=== PATIENT | male | born 1990 | race American Indian/Alaskan Native ===

== ENCOUNTER 2018-02-24 14:06 | Emergency (ER) | payer SELFPAY ==
[2018-02-24 14:15] VITALS: BP 129/74
--- NOTE | 2018-02-24 15:48 | Emergency Department Report ---
ED Chest Pain HPI - General Chief Complaint: Chest Pain Stated Complaint: CP Time Seen by Provider: 02/24/18 15:30 Source: patient Mode of arrival: Ambulatory Limitations: No Limitations - History of Present Illness Initial Comments: This is a 27-year-old -[place] male that presents with chest pain with deep breaths and stretching for 3-4 days. Patient reports feeling like something is grabbing his heart when he reached for something. States symptoms increased Thursday morning when he woke up. He has a history of anxiety. Admits to drug and alcohol abuse. States any past he was taken every drug but methamphetamines. Currently sober for 3-4 days since symptoms started. Reports pain is worse with range of motion of bilateral upper extremity. If he touch left chest wall he can feel pain that is 10 out of 10. Reports pain is intermittent. Denies taking anything for symptom relief. Concerned he cleaned the return of pneumonia or shingles. He had both last year diagnosed by [facility]. Denies shortness of breath, nausea vomiting, fever, erythema, asthma, SOB, palpations, or dyspnea, and swelling. MD Complaint: chest pain -: days(s) (4 days) Onset: during exertion Pain Location: left chest Pain Radiation: none Severity: moderate Severity scale (0 -10): 5 Quality: tightness, squeezing Consistency: intermittent Improves With: rest Worsens With: exertion, inspiration, movement re: denies: nausea, vomting, diaphoresis, dyspnea, sense of impending doom Other Symptoms: denies: cough, fever, syncope, rash, acid taste in mouth, leg swelling, palpitations, burping Treatments Prior to Arrival: none - Related Data Previous Rx's Medication Instructions Recorded Last Taken Type Acyclovir [Zovirax Tab] 800 mg PO DAILY #50 tab 03/09/16 Unknown Rx Ibuprofen [Motrin 800 MG tab] 800 mg PO Q8HR PRN #30 tablet 03/09/16 Unknown Rx predniSONE [Deltasone] 50 mg PO QDAY #5 tab 03/09/16 Unknown Rx Cyclobenzaprine HCl [Flexeril 5 MG 5 mg PO TID PRN #15 tab 02/24/18 Unknown Rx TAB] Ibuprofen [Motrin 800 MG tab] 800 mg PO Q8HR PRN #15 tablet 02/24/18 Unknown Rx Allergies Allergy/AdvReac Type Severity Reaction Status Date / Time No Known Allergies Allergy Verified 03/09/16 20:26 Heart Score - HEART Score History: Slightly suspicious EKG: Normal Age: < 45 Risk factors: 1-2 risk factors Troponin: < normal limit HEART Score: 1 ED Review of Systems ROS: Stated complaint: CP Other details as noted in HPI Constitutional: denies: chills, fever Respiratory: denies: cough, shortness of breath, wheezing Cardiovascular: chest pain. denies: palpitations, edema, syncope Gastrointestinal: denies: abdominal pain, nausea, vomiting, diarrhea Neurological: denies: headache, weakness, numbness, paresthesias Psychiatric: denies: anxiety, depression ED Past Medical Hx - Past Medical History Previous Medical History?: Yes Additional medical history: Hx of anxiety. - Surgical History Past Surgical History?: No - Social History Smoking Status: Current Every Day Smoker Substance Use Type: Alcohol, Cocaine, Marijuana, Other - Medications Home Medications: Home Medications Medication Instructions Recorded Confirmed Last Taken Type Acyclovir [Zovirax Tab] 800 mg PO DAILY #50 tab 03/09/16 Unknown Rx Ibuprofen [Motrin 800 MG tab] 800 mg PO Q8HR PRN #30 tablet 03/09/16 Unknown Rx predniSONE [Deltasone] 50 mg PO QDAY #5 tab 03/09/16 Unknown Rx Cyclobenzaprine HCl [Flexeril 5 MG 5 mg PO TID PRN #15 tab 02/24/18 Unknown Rx TAB] Ibuprofen [Motrin 800 MG tab] 800 mg PO Q8HR PRN #15 tablet 02/24/18 Unknown Rx ED Physical Exam - General Limitations: No Limitations General appearance: alert, in no apparent distress - Respiratory Respiratory exam: Present: normal lung sounds bilaterally. Absent: respiratory distress - Cardiovascular Cardiovascular Exam: Present: regular rate, normal rhythm, normal heart sounds, other (tenderness along costocondral joint on left). Absent: systolic murmur, diastolic murmur, rubs, gallop - GI/Abdominal GI/Abdominal exam: Present: soft, normal bowel sounds. Absent: organomegaly, mass - Neurological Exam Neurological exam: Present: alert, oriented X3, normal gait - Psychiatric Psychiatric exam: Present: normal affect, normal mood - Skin Skin exam: Present: warm, dry, intact, normal color. Absent: rash ED Course Vital Signs 02/24/18 14:10 Temperature 98 F Pulse Rate 61 Respiratory 16 Rate Blood Pressure 129/74 O2 Sat by Pulse 98 Oximetry ED Medical Decision Making - Lab Data Result diagrams: 02/24/18 16:11 02/24/18 16:11 - Medical Decision Making 27 y.o. male that presents with chest pain on left side of chest that is non- radiating for 4 days. Denies drug use for 4 days since symptoms started, asthma , SOB, palpations, fever, or dyspnea. Patient examined by me and in no acute distress. Vitals stable. Obtained BMP, CBC, troponin, EKG, and chest xray. All labs, EKG, and CXR unremarkable. Physical assessment findings of tenderness along costocondral joint on left. Start ibuprofen and flexeril. Discharged home stable. Follow up with PCP in 2-3 days. Critical care attestation.: If time is entered above; I have spent that time in minutes in the direct care of this critically ill patient, excluding procedure time. ED Disposition Clinical Impression: Chest pain on exertion, Acute costochondritis Disposition: TO HOME OR SELFCARE Is pt being admited?: No Does the pt Need Aspirin: No Condition: Stable Instructions: Chest Pain (ED), Costochondritis (ED) Additional Instructions: Take ibuprofen and flexeril as needed for pain control. Don't take flexeril while driving or operating heavy machinery, may cause drowsiness. Follow up with primary care provider in 24-72 hours. Return to ER if chest pain unresolved, shortness of breath, or difficulty breathing. Prescriptions: Cyclobenzaprine HCl [Flexeril 5 MG TAB] 5 mg PO TID PRN #15 tab PRN Reason: Muscle Spasm Ibuprofen [Motrin 800 MG tab] 800 mg PO Q8HR PRN #15 tablet PRN Reason: Pain Referrals: [facility] [Outside] - 3-5 Days [facility] [Outside] - 3-5 Days [facility] [Outside] - 3-5 Days Time of Disposition: 18:09 Print Language: COMORAN
--- NOTE | 2018-02-24 16:38 | XRay Report ---
CHEST TWO VIEWS: 02/24/18 CLINICAL: Chest pain. COMPARISON: None FINDINGS: Normal heart and pulmonary vasculature. The lungs are normally expanded and clear.The bones and soft tissues are unremarkable. IMPRESSION: Normal chest.
[2018-02-24 16:45] LABS: Hematocrit 48.6 % (35.5-45.6); Hemoglobin 15.5 gm/dl (11.8-15.2); Mean Corpuscular HGB Conc 32 % (32-34); Mean Corpuscular Hemoglobin 27 pg (28-32); Mean Corpuscular Volume 85 fl (84-94); Platelet Count 151 K/mm3 (140-440); Red Blood Count 5.71 M/mm3 (3.65-5.03)
[2018-02-24 16:50] LABS: BUN/Creatinine Ratio 16; Blood Urea Nitrogen 14 mg/dL (9-20); Calcium 9.8 mg/dL (8.4-10.2); Hemolysis Index 8
== END 2018-02-24 18:19 | disposition home or self-care (01) ==
LOC: ED 14:06
DX: M94.0 Chondrocostal junction syndrome [Tietze] (principal); F17.200 Nicotine dependence, unspecified, uncomplicated; F12.10 Cannabis abuse, uncomplicated; F14.10 Cocaine abuse, uncomplicated; F41.9 Anxiety disorder, unspecified
CPT/HCPCS: 36415; 71046; 80048; 82550; 84484; 85027; 93005; 93010

== ENCOUNTER 2021-12-03 06:27 | Emergency (ER) | payer SELFPAY ==
[2021-12-03] MEDS ORDERED: TETANUS,DIPHTHERIA TOXOID ADULT 0.5 ML INJ IM ONE (11:31)
--- NOTE | 2021-12-03 12:46 | Cat Scan Report ---
CT HEAD WITHOUT CONTRAST INDICATION / CLINICAL INFORMATION: head injury. TECHNIQUE: Axial imaging performed from the skull apex through the skull base without the use of cont rast. Sagittal and coronal reformatted images. All CT scans at this location are performed using CT dose reduction for ALARA by means of automated exposure control. COMPARISON: None available. FINDINGS: CEREBRAL PARENCHYMA: No significant abnormality. No acute territorial infarct. HEMORRHAGE: None. EXTRA-AXIAL SPACES: Normal in size and morphology for the patient's age. VENTRICULAR SYSTEM: Normal in size and morphology for the patient's age. MIDLINE SHIFT OR HERNIATION: None. CEREBELLUM / BRAINSTEM: No significant abnormality. CALVARIUM: No significant abnormality. ORBITS: Normal as visualized. PARANASAL SINUSES / MASTOID AIR CELLS: Normal as visualized. SOFT TISSUES of HEAD: No significant abnormality. ADDITIONAL FINDINGS: None. IMPRESSION: No acute intracranial abnormality. Signer Name: León Giles Jr, MD Signed: 12/03/2021 12:41 PM Workstation Name: [id number]
--- NOTE | 2021-12-03 13:15 | Emergency Department Report ---
ED Head Trauma HPI - General Chief complaint: Head Injury Stated complaint: HEAD INJURY Time Seen by Provider: 12/03/21 11:27 Source: patient Mode of arrival: Ambulatory Limitations: No Limitations - History of Present Illness Initial comments: head injury. States something fell off a shelf and hit him on the right side of his forehead, bleeding;, no bleeding in the triage. Denies LOC, Pupils equal, pt alert and oriented. MD Complaint: head injury -: Sudden, hour(s) Mechanism of Injury: machine or tool related Location: frontal Loss of Consciousness: no Previous Trauma to this Area: No Place: work Radiation: none Severity: mild Severity scale (0 -10): 2 Quality: dull Consistency: constant Provoking factors: none known - Related Data Previous Rx's Medication Instructions Recorded Last Taken Type Acyclovir [Zovirax Tab] 800 mg PO DAILY #50 tab 03/09/16 Unknown Rx Ibuprofen [Motrin 800 MG tab] 800 mg PO Q8HR PRN #30 tablet 03/09/16 Unknown Rx predniSONE [Deltasone] 50 mg PO QDAY #5 tab 03/09/16 Unknown Rx Cyclobenzaprine HCl [Flexeril 5 MG 5 mg PO TID PRN #15 tab 02/24/18 Unknown Rx TAB] Ibuprofen [Motrin 800 MG tab] 800 mg PO Q8HR PRN #15 tablet 02/24/18 Unknown Rx Allergies/Adverse reactions: Allergies Allergy/AdvReac Type Severity Reaction Status Date / Time No Known Allergies Allergy Verified 03/09/16 20:26 ED Review of Systems ROS: Stated complaint: HEAD INJURY Other details as noted in HPI Constitutional: denies: chills, fever Eyes: denies: eye pain, eye discharge, vision change ENT: denies: ear pain, throat pain Respiratory: denies: cough, shortness of breath, wheezing Cardiovascular: denies: chest pain, palpitations Endocrine: no symptoms reported Gastrointestinal: denies: abdominal pain, nausea, diarrhea Genitourinary: denies: urgency, dysuria Musculoskeletal: denies: back pain, joint swelling, arthralgia Skin: denies: rash, lesions Neurological: denies: headache, weakness, paresthesias Psychiatric: denies: anxiety, depression Hematological/Lymphatic: denies: easy bleeding, easy bruising ED Past Medical Hx - Past Medical History Previous Medical History?: No Hx Hypertension: No Additional medical history: Hx of anxiety. - Social History Smoking Status: Current Every Day Smoker Substance Use Type: Alcohol, Cocaine, Marijuana, Other - Medications Home Medications: Home Medications Medication Instructions Recorded Confirmed Last Taken Type Acyclovir [Zovirax Tab] 800 mg PO DAILY #50 tab 03/09/16 Unknown Rx Ibuprofen [Motrin 800 MG tab] 800 mg PO Q8HR PRN #30 tablet 03/09/16 Unknown Rx predniSONE [Deltasone] 50 mg PO QDAY #5 tab 03/09/16 Unknown Rx Cyclobenzaprine HCl [Flexeril 5 MG 5 mg PO TID PRN #15 tab 02/24/18 Unknown Rx TAB] Ibuprofen [Motrin 800 MG tab] 800 mg PO Q8HR PRN #15 tablet 02/24/18 Unknown Rx ED Physical Exam - General Limitations: No Limitations General appearance: alert, in no apparent distress - Expanded Head Exam Expanded Head exam: Present: abrasion - Eye Eye exam: Present: normal appearance - ENT ENT exam: Present: mucous membranes moist - Neck Neck exam: Present: normal inspection - Respiratory Respiratory exam: Present: normal lung sounds bilaterally. Absent: respiratory distress - Cardiovascular Cardiovascular Exam: Present: regular rate, normal rhythm. Absent: systolic murmur, diastolic murmur, rubs, gallop - GI/Abdominal GI/Abdominal exam: Present: soft, normal bowel sounds - Rectal Rectal exam: Present: deferred - Extremities Exam Extremities exam: Present: normal inspection - Back Exam Back exam: Present: normal inspection - Neurological Exam Neurological exam: Present: alert, oriented X3 - Psychiatric Psychiatric exam: Present: normal affect, normal mood - Skin Skin exam: Present: warm, dry, intact, normal color. Absent: rash ED Course Vital Signs 12/03/21 07:57 Temperature 98.7 F Pulse Rate 64 Respiratory 18 Rate Blood Pressure 141/80 [Right] O2 Sat by Pulse 100 Oximetry Critical care attestation.: If time is entered above; I have spent that time in minutes in the direct care of this critically ill patient, excluding procedure time. ED Disposition Clinical Impression: Head injury Disposition: HOME / SELF CARE / HOMELESS Is pt being admited?: No Does the pt Need Aspirin: No Condition: Stable Instructions: How to Use Cold Therapy, [id number] Referrals: EVIN DAVID MD [Primary Care Provider] - 3-5 Days
[2021-12-03 13:32] VITALS: BP 114/78
== END 2021-12-03 13:31 | disposition home or self-care (01) ==
LOC: ED 06:27
DX: S09.90XA Unspecified injury of head, initial encounter (principal); W19.XXXA Unspecified fall, initial encounter; Y93.89 Activity, other specified; Y92.89 Other specified places as the place of occurrence of the external cause; Y99.8 Other external cause status
CPT/HCPCS: 70450; 90471; 90714; 99283